=== PATIENT | male | born 1970 | race Caucasian/White ===

== ENCOUNTER 2017-02-28 05:33 | Observation (INO) | payer OTHER ==
[2017-02-26 15:59] LABS: BASOPHILS % 0.5 % (0.0-1.0); EOSINOPHILS # (AUTO) 0.2 (0.0-0.4); EOSINOPHILS % 2.5 % (0.0-6.0); HEMATOCRIT 46.5 % (38.2-49.6); HEMOGLOBIN 15.4 g/dL (14.0-18.0); LYMPHOCYTES # (AUTO) 2.1 (1.0-3.2); LYMPHOCYTES % 28.1 % (18.0-39.1); MEAN CORPUSCULAR HEMOGLOBIN 27.9 pg (28-32); MEAN CORPUSCULAR HGB CONC 33.1 g/dL (31-35); MEAN CORPUSCULAR VOLUME 84.4 fL (81-99); MONOCYTES # (AUTO) 0.7 (0.2-0.8); MONOCYTES % 8.9 % (4.4-11.3); NEUTROPHILS # (AUTO) 4.5 (2.1-6.9); NEUTROPHILS % 59.7 % (38.7-80.0); PLATELET COUNT 253 x10e3/uL (140-360); RED BLOOD COUNT 5.51 x10e6/uL (4.3-5.7); RED CELL DISTRIBUTION WIDTH 15.7 % (11.7-14.4)
[2017-02-26 16:10] LABS: INR 0.9; PROTHROMBIN TIME 12.6 seconds (11.9-14.5)
[2017-02-26 16:11] LABS: PARTIAL THROMBOPLASTIN TIME 23.7 seconds (23.8-35.5)
[2017-02-26 16:17] LABS: BLOOD UREA NITROGEN 16 mg/dL (7-26); BUN/CREATININE RATIO 14 (6-25); CALCIUM 9.8 mg/dL (8.4-10.2); CARBON DIOXIDE 27 mmol/L (22-29); CHLORIDE 103 mmol/L (98-107); CREATININE, SERUM 1.17 mg/dL (0.72-1.25); EST GLOMERULAR FILTRATION RATE > 60 ML/MIN (60-); GLUCOSE 107 mg/dL (74-118); SODIUM 139 mmol/L (136-145)
--- NOTE | 2017-02-26 16:22 | Diagnostic Imaging Report ---
PROCEDURE: Frontal and lateral views of the chest. COMPARISON: None. INDICATIONS: PRE OP . Pain. FINDINGS: Lines/tubes: None. Lungs: The lungs are well inflated and clear. Calcified granuloma in the lateral right midlung. There is no evidence of pneumonia or pulmonary edema. Pleura: There is no pleural effusion or pneumothorax. Heart and mediastinum: The heart and the mediastinum are normal. Bones: No acute bony abnormality. Degenerative changes in the thoracic spine. Anterior cervical fusion plate. IMPRESSION: No acute cardiopulmonary disease. Dictated by: Peter Reyes M.D. on 02/26/2017 at 16:30 Electronically approved by: Peter Reyes M.D. on 02/26/2017 at 16:30
[~2017-02-28] VITALS: Ht 180.3 cm; Wt 103.9 kg
[~2017-02-28 05:33] MED LIST: ANASTROZOLE1 MG PO; AXIRON90 ML TD; HYDROCHLOROTH12.5 M1 PO; LIPOFEN; VICODIN ES TAB1 EACH PO; Z.0.BENICAR20 MG PO; Z.0.NEXIUM40 MG PO
[2017-02-28] MEDS ORDERED: CEFAZOLIN SOD 2 GM/D5W 50ML 50 ML IV ONE (06:06)
[2017-02-28] MEDS ORDERED: GELATIN SPONGE SZ 100 ONE (06:47)
[2017-02-28] MEDS ORDERED: THROMBIN FOR SOLN 5,000 UNIT VIAL ONE (06:47)
[2017-02-28] MEDS ORDERED: LIDOCAINE 1% W/EPINEPHRINE 20 ML VIAL ONE (06:47)
[2017-02-28] MEDS ORDERED: BACITRACIN 50,000 UNIT VIAL ONE (06:47)
[2017-02-28] MEDS ORDERED: LIDOCAINE HCL (LTA) 4 ML SOLN ONE (07:35)
[2017-02-28] MEDS ORDERED: FENTANYL CITRATE/PF 100MCG/2 ML INJ ONE ×2 (10:10→18:26)
[2017-02-28] MEDS ORDERED: OXYCODONE/ACETAMINOPHEN 5-325 1 EACH TABLET PO PRN (10:30)
[2017-02-28] MEDS ORDERED: HYDROMORPHONE 2MG/ML INJ IV PRN (10:30)
[2017-02-28] MEDS ORDERED: MORPHINE SULFATE 5 MG/ML VIAL IM PRN (10:30)
[2017-02-28] MEDS ORDERED: PROMETHAZINE HCL (IM) 25 MG/ML VIAL IM PRN (10:30)
[2017-02-28] MEDS ORDERED: CEPACOL SORE THROAT LOZENGES PO PRN (10:30)
[2017-02-28] MEDS ORDERED: ONDANSETRON HCL INJ 2 MG/ML VIAL IV PRN (10:30)
[2017-02-28] MEDS ORDERED: CARISOPRODOL 350 MG TAB PO PRN (10:30)
[2017-02-28] MEDS ORDERED: MAGNESIUM/ALUMINUM/SIMETHICONE 30 ML UDC PO PRN (10:30)
[2017-02-28] MEDS ORDERED: HYDROMORPHONE 2MG/ML INJ ONE (10:44)
[2017-02-28 11:32] VITALS: BP 160/88
[2017-02-28 11:49] VITALS: BP 160/88
[2017-02-28] MEDS: CEFAZOLIN SOD 1 GM VIAL IV SCH ×2 (13:06→22:15)
[2017-02-28] MEDS ORDERED: CEFAZOLIN SOD 1 GM/NS 50ML 50 ML IV SCH (14:00)
[2017-02-28 15:52] VITALS: BP 171/86
[2017-02-28] MEDS: LACTATED RINGER'S 1,000 ML IV SCH ×2 (16:53→18:42)
[2017-02-28] MEDS ORDERED: ACETAMINOPHEN 1000 MG/100 ML IV ONE (17:57)
[2017-02-28] MEDS ORDERED: LIDOCAINE HCL 2% JELLY 5 ML TUBE ONE (17:57)
[2017-02-28] MEDS ORDERED: NEOSTIGMINE 5 MG/5ML SYR ONE (17:57)
[2017-02-28] MEDS ORDERED: GLYCOPYRROLATE INJ 1MG/ 5 ML SYR ONE (17:57)
[2017-02-28] MEDS ORDERED: PROPOFOL IV EMULSION 10 MG/ML 20 ML VIAL ONE (17:57)
[2017-02-28] MEDS ORDERED: LIDOCAINE HCL 2% LOCAL INJ 5 ML SDV VIAL INJ ONE (17:57)
[2017-02-28] MEDS ORDERED: DEXAMETHASONE SOD PHOS INJ 4 MG/ML VIAL ONE (17:57)
[2017-02-28] MEDS ORDERED: ROCURONIUM BROMIDE 10 MG/ML 5ML VIAL ONE (17:57)
[2017-02-28] MEDS ORDERED: DESFLURANE 240 ML BTL INH ONE (17:57)
[2017-02-28] MEDS ORDERED: ONDANSETRON HCL INJ 2 MG/ML VIAL ONE (17:57)
[2017-02-28] MEDS ORDERED: MIDAZOLAM HCL 2 MG/2 ML VIAL ONE (18:26)
[2017-02-28 20:00] VITALS: BP 164/94
[2017-02-28] MEDS ORDERED: ZOLPIDEM TARTRATE 5 MG TAB PO PRN (21:00)
[2017-02-28] MEDS: ACETAMINOPHEN 325 MG TAB PO PRN (22:48)
[2017-03-01] VITALS: BP 172/83
[2017-03-01] MEDS: LACTATED RINGER'S 1,000 ML IV SCH (03:02)
[2017-03-01 04:00] VITALS: BP 163/94
[2017-03-01] MEDS: CEFAZOLIN SOD 1 GM VIAL IV SCH (06:15)
[2017-03-01] MEDS: ACETAMINOPHEN 325 MG TAB PO PRN (06:16)
[2017-03-01] MEDS ORDERED: PANTOPRAZOLE SOD 40 MG TABEC PO SCH (07:30)
--- NOTE | 2017-03-01 07:40 | Diagnostic Imaging Report ---
PROCEDURE: X-RAY CERVICAL SPINE, TWO VIEWS COMPARISON:C-spine series dated 07/13/2011 INDICATIONS:S/P SURGERY FINDINGS: See conclusion. CONCLUSION: AP and lateral views of the cervical spine from the skull base to C6 show anterior cervical spine surgical fusion from C3-C5 with intervertebral body disc spacers and an anterior plate. Previously there was a fusion at C5-C6 with an anterior plate. This has been removed. The visualized vertebral bodies are well-aligned. There is mild pre-vertebral soft-tissue swelling consistent with recent surgery. Torin Ying D.O. Dictated by: Torin Ying D.O. on 03/01/2017 at 7:48 Electronically approved by: Torin Ying D.O. on 03/01/2017 at 7:48
[2017-03-01 08:36] VITALS: BP 161/96
[2017-03-01] MEDS ORDERED: OLMESARTAN 20 MG TAB PO SCH (09:00)
[2017-03-01] MEDS ORDERED: NON-FORMULARY MEDICATION (Esomeprazole Mag Trihydrate (Nexium) 40 MG) PO SCH (09:00)
[2017-03-01] MEDS ORDERED: TESTOSTERONE TOP SCH (09:00)
[2017-03-01] MEDS ORDERED: HYDROCHLOROTHIAZIDE 25 MG TAB PO SCH (09:00)
[2017-03-01] MEDS ORDERED: NORCO 7.5-3251 EACH PO (09:00)
[2017-03-01] MEDS ORDERED: ANASTROZOLE 1 MG TAB PO SCH (09:00)
[2017-03-01 09:31] VITALS: BP 161/96
--- NOTE | 2017-03-01 14:06 | Operative Report ---
DATE OF PROCEDURE: February 28, 2017 PREOPERATIVE DIAGNOSIS: C3-C4 and C4-5 spondylosis and foraminal stenosis above the level of previous C5-6 fusion, M50.120. POSTOPERATIVE DIAGNOSIS: C3-C4 and C4-5 spondylosis and foraminal stenosis above the level of previous C5-6 fusion, M50.120. PROCEDURES 1. C3-C4 anterior cervical diskectomy, microsurgical osteophyte resection and allograft fusion, . 2. C4-C5 anterior cervical diskectomy, microsurgical osteophyte resection and allograft fusion, . 3. Preparation of iliac crest allograft, . 4. C3-C4 and C4-C5 anterior cervical plate and screw fixation, . 5. Removal of C5-C6 anterior cervical plate, . 6. Exploration of C5-C6 fusion, . ANESTHESIA: General. INDICATIONS: The patient is a man who has previously undergone C5-6 anterior cervical diskectomy and fusion by la in the distant past with good results. He now presents with neck pain and cervical radiculopathy and is found to have prominent disk osteophyte complexes at C3-4 and C4-5 above the level of his previous fusion. He was taken to the operating room for decompression of these segments and extension of his fusion. PROCEDURE: After induction of general anesthesia, the patient was placed on the operating table in supine position. The right side of the neck was prepped and draped in a sterile fashion. The fluoroscopic C-arm was positioned in cross-table lateral orientation. A transverse incision was created on the right side of the neck superimposed on the C4-5 disk space as determined by fluoroscopy. The platysma was divided in line with the incision. A subplatysmal dissection was carried out. A plane of dissection was developed through the previous scar layer and was followed medial to the sternocleidomastoid muscle and medial to the carotid sheath to the anterior border of the cervical spine. The margins of the esophagus were defined, and it was retracted to the left. The scar overlying the previous C5-6 plate was resected, and the plate was exposed. Each of the 4 locking screws and each of the 4 bone screws within the previous Synthes plate was removed. The plate was mobilized and removed. The fusion at C5-6 was explored and found to be perfectly solid. Attention was directed to the C3-C4 and C4-C5 disk spaces. The attachments of the longus coli muscles to the lateral aspects of the vertebral bodies in the regions were divided. The large anterior osteophytes were resected with [place] rongeurs. [place] posts were inserted into C3 and C5, and the [place] distractor was used to distract both disk spaces simultaneously. The anterior annuli of the disks were incised with a #11 blade, and the contents of both disks were thoroughly evacuated with angled curets and pituitary rongeurs. The operating microscope was brought in. A high-speed drill equipped with a tad bur was used to drill the posterior osteophytes at both levels until they were completely removed. The posterior annulus of the disk, chronically herniated disk material, and the posterior longitudinal ligament were resected layer by layer until the dura was fully exposed and decompressed. The medial aspects of uncinate processes were resected bilaterally to further expose and decompress the origins of the corresponding nerve roots at both levels. After satisfactory decompression had been achieved, the endplates were prepared for fusion. Two pieces of tricortical iliac crest allograft were cut to the size and shapes of the disk spaces and were inserted into the disk spaces under distraction and fluoroscopic guidance. The distraction was released, and the distraction posts were removed. A Synthes CSLP variable-type anterior cervical plate was selected and was affixed to the vertebral bodies of C3, C4 and C5 with 3 pairs of 16 x 4.35-mm screws. The screws at C5 were inserted into the existing screw holes. New screw holes were drilled under lateral fluoroscopy at C3 and C4. All screws were then locked with the appropriate locking screws. An excellent construct was obtained. The wound was copiously irrigated with Bacitracin solution. Meticulous hemostasis was secured. Retractor was removed. A Hemovac drain was placed. The platysma was closed with 3-0 Vicryl sutures. The skin was closed with 4-0 Monocryl sutures in subcuticular fashion. Steri-Strips and dressing were applied. The patient was awakened, extubated and taken to the postanesthesia care unit in stable condition. No intraoperative complications were encountered. Estimated blood loss was 30 mL. Job#: [id number]
== END 2017-03-01 09:57 | disposition home or self-care (01) ==
LOC: OR 05:33 → IMCU 10:51
PROVIDERS: ADMIT Neurological Surgery; ATTEND Neurological Surgery
DX: M50.120 Mid-cervical disc disorder, unspecified level (principal); I10 Essential (primary) hypertension; E78.5 Hyperlipidemia, unspecified; Z85.850 Personal history of malignant neoplasm of thyroid
CPT/HCPCS: 20931; 22551; 22552; 22830; 22845; 22855; 36415; 71020; 72040; 77003; 80048; 85025; 85610; 85730; 86850; 86900; 88300; 88304; 93005; C1713 ×4; C1763; G0378 ×2; J0690 ×2; J1100; J1170; J2001 ×2; J2250; J2405; J7120; 71046